=== PATIENT | male | born 1965 | race African-American/Black ===

== ENCOUNTER 2017-01-25 02:09 | Emergency (ER) | payer SELFPAY ==
[~2017-01-25] VITALS: Ht 190.5 cm; Wt 90.9 kg
[~2017-01-25 02:09] MED LIST: ASPI-664 PO
[2017-01-25 02:18] VITALS: Ht 190.5 cm; Wt 90.9 kg
--- NOTE | 2017-01-25 04:34 | RADRPT ---
PROCEDURE: Lower extremity Doppler CLINICAL INDICATION: Leg pain TECHNIQUE: Ontiveros scale and color Doppler imaging of the right lower extremity COMPARISON: None FINDINGS: There is no evidence for deep venous thrombosis of the right lower extremity. The deep veins were f ully compressible and normal augmentation was seen. No Sanz's cyst was seen. No calf vein thrombu s was seen. IMPRESSION: No evidence for right deep venous thrombosis. RPTAT: [facility] Liat Russ, Physician Date Time Electronically viewed and signed by Liat Russ, Physician on 01/25/2017 04:34 LE/
--- NOTE | 2017-01-25 04:53 | ERD ---
ER Documentation Chief Complaint Date/Time DATE: 01/25/17 TIME: 04:46 Chief Complaint C/O RT UPPER THIGH AND CALF PAIN X1 WEEK HPI 51-year-old male presents here in emergency department for complaints of right upper thigh pain, right lower leg swelling for 1 week. Patient states that he does walk a lot, may have strained his right upper thigh area, noted right lower leg to be swelling and right calf area to be swollen, is worried about a DVT. Patient denies any right calf pain. Patient is complaining of right upper thigh pain, throbbing pain, 4/10 scale, not better or worse with anything. Patient states that the swelling has improved. Patient did not take any medications to help with symptoms. ROS All systems reviewed and are negative except as per history of present illness. Medications Home Meds Active Scripts Aspirin* (Aspirin* EC) 81 Mg Tabec, 81 MG PO DAILY, #120 TAB.CHEW Prov:BEBETO ESPINO MD 12/29/15 Allergies Allergies: Coded Allergies: No Known Allergy (Unverified , 01/25/17) PMhx/Soc Medical and Surgical Hx: pt denies Medical Hx, pt denies Surgical Hx History of Surgery: No Anesthesia Reaction: No Hx Neurological Disorder: No Hx Respiratory Disorders: No Hx Cardiac Disorders: No Hx Psychiatric Problems: No Hx Miscellaneous Medical Probl: No Hx Alcohol Use: Yes Hx Substance Use: Yes (Thc) Hx Tobacco Use: Yes Smoking Status: Current every day smoker FmHx Family History: No coronary disease, No diabetes, No other Physical Exam Vitals Vital Signs Date Time Temp Pulse Resp B/P Pulse Ox O2 Delivery O2 Flow Rate FiO2 01/25/17 02:18 98.0 82 18 130/84 100 Physical Exam GENERAL: The patient is well developed and appropriate for usual state of health, in no apparent distress. CHEST: Clear to auscultation bilaterally. There are no rales, wheezes or rhonchi. HEART: Regular rate and rhythm. No murmurs, clicks, rubs or gallops. No S3 or S4. ABDOMEN: Soft, nontender and nondistended. Good bowel sounds. No rebound or guarding. No gross peritonitis. No gross organomegaly or masses. No Reeves sign or McBurney point tenderness. BACK: No midline or flank tenderness. EXTREMITIES: No negative Homans sign, no swelling of the bilateral lower extremities the right lower leg Area, no redness started, but denies the right hamstring. Equal pulses bilaterally. There is no peripheral clubbing, cyanosis or edema. No focal swelling or erythema. Full range of motion. Grossly neurovascularly intact. NEURO: Alert and oriented. Cranial nerves 2-12 intact. Motor strength in all 4 extremities with 5/5 strength. Sensation grossly intact. Normal speech and gait. SKIN: There is no apparent rash or petechia. The skin is warm and dry. HEMATOLOGIC AND LYMPHATIC: There is no evidence of excessive bruising or lymphedema. No gross cervical, axillary, or inguinal lymphadenopathy. Results 24 hrs PROCEDURE: Lower extremity Doppler CLINICAL INDICATION: Leg pain TECHNIQUE: Ontiveros scale and color Doppler imaging of the right lower extremity COMPARISON: None FINDINGS: There is no evidence for deep venous thrombosis of the right lower extremity. The deep veins were fully compressible and normal augmentation was seen. No Sanz's cyst was seen. No calf vein thrombus was seen. IMPRESSION: No evidence for right deep venous thrombosis. RPTAT: [facility] Physician Kai Date Time Electronically viewed and signed by Physician Kai on 01/25/2017 04 :34 LE/ CC: NUHA SOLO [employer] Procedures/MDM Medical Decision Making: Patient's pain is most likely consistent with a amstring strain. There is no suspicion for neurovascular compromise. Patient has intact sensation and circulation of the affected extremity. There is low suspicion for septic arthritis. Patient does not have any fever. Radiology exams of the affected area does not show any fracture or dislocation. Disposition: Home. Patient is given prescription for ibuprofen for pain. Patient was advised to elevate the affected area and apply ice on affected area. Patient was advised that if symptoms are worse, numbness, tingling, high fever, unable to move joint, worsening symptoms, to return to emergency department immediately. Otherwise, patient is advised to follow up with the primary care doctor in 5-7 days for reevaluation of symptoms. Departure Diagnosis: Primary Impression: Hamstring strain Encounter type: initial encounter Laterality: right Qualified Code: S76.311A - Hamstring strain, right, initial encounter Condition: Stable Patient Instructions: Muscle Strain, Extremity Additional Instructions: Patient is given prescription for ibuprofen for pain. Patient was advised to elevate the affected area and apply ice on affected area. Patient was advised that if symptoms are worse, numbness, tingling, high fever, unable to move joint , worsening symptoms, to return to emergency department immediately. Otherwise, patient is advised to follow up with the primary care doctor in 5-7 days for reevaluation of symptoms. NUHA SOLO NP Jan 25, 2017 04:53
[2017-01-25] MEDS ORDERED: IBUP-1542 PO (04:54)
[2017-01-25 05:31] VITALS: BP 131/82; PULSE 80; RESP 18; TEMP 98.3
== END 2017-01-25 05:10 | disposition home or self-care (01) ==
LOC: FTE 02:09
DX: S76.311A Strain of muscle, fascia and tendon of the posterior muscle group at thigh level, right thigh, initial encounter (principal); F17.210 Nicotine dependence, cigarettes, uncomplicated; X58.XXXA Exposure to other specified factors, initial encounter; Y92.9 Unspecified place or not applicable; Z79.82 Long term (current) use of aspirin
CPT/HCPCS: 93971